=== PATIENT | female | born 1990 | race Caucasian/White ===

== ENCOUNTER 2016-09-24 22:28 | Inpatient (IN) | payer OTHER ==
[~2016-09-24] VITALS: Ht 154.9 cm; Wt 115.2 kg
[~2016-09-24 22:28] MED LIST: IBUP-2070 PO; PNV1CAPS42 PO
[2016-09-24 22:54] VITALS: BP 107/67
[2016-09-24] MEDS ORDERED: OXYTOCIN 30 UNITS/LACT RINGERS 500 ML IV ONE (23:01)
[2016-09-24] MEDS ORDERED: RINGERS SOLUTION,LACTATED 1,000 ML IV PRN (23:01)
[2016-09-24] MEDS ORDERED: RINGERS SOLUTION,LACTATED 1,000 ML IV SCH (23:01)
[2016-09-24] MEDS ORDERED: OXYGEN THERAPY IH SCH (23:15)
[2016-09-24] MEDS ORDERED: CITRIC ACID/SODIUM CITRATE 30 ML SOLUTION UDCUP PO PRN (23:15)
[2016-09-24] MEDS ORDERED: METOCLOPRAMIDE HCL 5 MG/ML 2 ML VIAL IVP PRN (23:15)
[2016-09-24] MEDS ORDERED: RINGERS SOLUTION,LACTATED 1,000 ML IV ONE (23:18)
[2016-09-24] MEDS ORDERED: AMPICILLIN SODIUM 2 GM/NS 100 ML IV ONE (23:30)
[2016-09-24] MEDS ORDERED: INFLUENZA VIRUS VACCINE QVS 2016-17 (3YR+)/PF 60 MCG/0.5 ML SYRINGE IM ONE (23:45)
[2016-09-25 00:05] LABS: BASOPHILS # (AUTO) 0.03 K/uL (0.00-0.20); BASOPHILS % (AUTO) 0.3 % (0.0-2.0); EOSINOPHILS # (AUTO) 0.12 K/uL (0.00-0.70); EOSINOPHILS % (AUTO) 1.19 % (1.0-6.0); HEMATOCRIT 35.8 % (36-46); HEMOGLOBIN 11.8 g/dL (12.0-16.0); LYMPHOCYTES # (AUTO) 2.3 K/uL (1.0-4.8); LYMPHOCYTES % (AUTO) 22.6 % (22.0-44.0); MEAN CORPUSCULAR HEMOGLOBIN 28.2 pg (26.0-34.0); MEAN CORPUSCULAR HGB CONC 32.9 G/dL (31.0-37.0); MEAN CORPUSCULAR VOLUME 85 fL (80-100); MONOCYTES # (AUTO) 0.7 K/uL (0.1-1.0); RED BLOOD CELL COUNT(AUTO) 4.19 MIL/uL (4.00-5.20); RED CELL DISTRIBUTION WIDTH 16.2 % (11.5-14.5); WHITE BLOOD COUNT (AUTO) 10.2 K/uL (4.5-11.0)
[2016-09-25] MEDS ORDERED: FentaNYL/BUPIV 0.125%/NS/PF 200 ML ED ONE (00:35)
[2016-09-25] MEDS ORDERED: LIDOCAINE HCL/PF 1% 30 ML VIAL ONE (00:38)
[2016-09-25 01:08] LABS: APPEARANCE,URINE CLOUDY (CLEAR); GLUCOSE, URINE (UA) NEGATIVE (NEGATIVE); KETONES,URINE NEGATIVE (NEGATIVE); LEUKOCYTE ESTERASE ,URINE TRACE (NEGATIVE); OCCULT BLOOD,URINE NEGATIVE (NEGATIVE); PH,URINE 6.5 (5.0-8.0); PROTEIN,URINE NEGATIVE (NEGATIVE)
[2016-09-25 01:10] LABS: ADD UA MICROSCOPIC YES
[2016-09-25 01:18] LABS: RBC,URINE 0-2 /HPF (0-2); SQUAMOUS EPITHELIAL CELL,UR Moderate /LPF (None Seen)
[2016-09-25] MEDS ORDERED: FentaNYL/BUPIV 0.125%/NS/PF 200 ML ED PRN (01:35)
[2016-09-25] MEDS ORDERED: ONDANSETRON HCL 4 MG/2 ML VIAL IVP PRN (01:45)
[2016-09-25] MEDS ORDERED: DiphenhydrAMINE HCL 50 MG/ML VIAL IVP PRN (01:45)
[2016-09-25] MEDS ORDERED: MAGNESIUM HYDROXIDE SUSPENSION 30 ML UDCUP PO PRN (02:30)
[2016-09-25] MEDS ORDERED: SENNA/DOCUSATE SODIUM 187-50 MG TABLET PO PRN (02:30)
[2016-09-25] MEDS ORDERED: GLYCERIN/WITCH HAZEL LEAF 40 PADS JAR TP PRN (02:30)
[2016-09-25] MEDS ORDERED: OXYTOCIN 20 UNITS in RINGERS SOLUTION,LACTATED 1,000 ML IV SCH (02:30)
[2016-09-25] MEDS ORDERED: LANOLIN 7 GM OINTMENT TP PRN (02:30)
[2016-09-25] MEDS ORDERED: ACETAMINOPHEN/CODEINE 300-30 MG TABLET PO PRN (02:30)
[2016-09-25] MEDS ORDERED: BENZOCAINE 20%/MENTHOL 56 GM SPRAY CANISTER TP PRN (02:30)
[2016-09-25] MEDS ORDERED: AMPICILLIN SODIUM 1 GM/NS 50 ML IV SCH (03:30)
[2016-09-25 03:45] LABS: RUBELLA SCREEN (IGG) IMMUNE (IMMUNE)
[2016-09-25] MEDS: IBUPROFEN 600 MG TABLET PO PRN ×3 (03:48→19:57)
[2016-09-25] MEDS ORDERED: IBUP-2070 PO (17:55)
[2016-09-25] MEDS ORDERED: FERR-89 PO (17:59)
[2016-09-26] MEDS: IBUPROFEN 600 MG TABLET PO PRN (05:54)
== END 2016-09-26 15:40 | disposition home or self-care (01) | DRG 560 ==
LOC: 4S 22:28 → OBSVTOIN 22:28
PROVIDERS: ADMIT Obstetrics & Gynecology; ATTEND Obstetrics & Gynecology
PROC: 10E0XZZ Delivery of Products of Conception, External Approach (ICD-10-PCS; principal; 2016-09-24)
PROC: 10907ZC Drainage of Amniotic Fluid, Therapeutic from Products of Conception, Via Natural or Artificial Opening (ICD-10-PCS; 2016-09-24)
PROC: 3E0S3CZ (ICD-10-PCS; 2016-09-24)
PROC: 00HU33Z Insertion of Infusion Device into Spinal Canal, Percutaneous Approach (ICD-10-PCS; 2016-09-24)
DX: O99.214 Obesity complicating childbirth (principal); Z68.42 Body mass index [BMI] 45.0-49.9, adult; Z37.0 Single live birth; Z3A.40 40 weeks gestation of pregnancy
CPT/HCPCS: 76815; 80307; 86592; 86762; 86850; 86900; 86901; 87340; 90471; J0290; J2590; J3490; J7120